=== PATIENT | female | born 1950 | race Caucasian/White ===

== ENCOUNTER 2017-09-23 03:59 | Observation (INO) ==
--- NOTE | 2017-09-23 04:43 | ED ---
HPI General Chief complaint: Extremity Problem,Nontraumatic Stated complaint: Left arm tingling x2hrs Time Seen by Provider: 09/23/17 04:00 Source: patient Mode of arrival: ambulatory Limitations: no limitations History of Present Illness HPI narrative: Patient presents with recurrent episodes of shortness of breath and weakness of upper extremities. In addition to this patient had intermittent chest discomfort and numbness of upper extremities. Patient admits to increased anxiety and stress. Related Data Home Medications Medication Instructions Recorded Confirmed atorvastatin 20 mg PO DAILY 09/23/17 09/23/17 lisinopril 10 mg PO BID 09/23/17 09/23/17 Allergies Allergy/AdvReac Type Severity Reaction Status Date / Time pentazocine Allergy Mild Nausea Verified 09/23/17 04:30 morphine Allergy Nausea Verified 09/23/17 04:31 Review of Systems ROS: all other systems reviewed are negative (Patient presents with substernal pressure radiating to neck and left shoulder that woke her up from sleep at 2: 30 AM. Pain was a tightness was not described his pain was very significant initially and at present it is still there but roughly 3 out of 10. Patient did not have shortness of breath diaphoresis or indigestion. Patient had a cardiac cath 2 years ago that showed no evidence of cardiovascular disease.) [facility]LY [facility] Medical History Medical History High cholesterol (Acute) Hypertension (Acute) Mixed connective tissue disease (Acute) Sleep apnea (Acute) Surgical History Surgical History Hx of arthroscopy of left knee (Acute) Hx of cardiac cath (Acute) Hx of tonsillectomy (Acute) Family History Family History Mother History of heart disease Brother History of heart disease History of cancer Social History Social History Substance History: No History of Abuse Second Hand Smoke Exposure: No Smoking Status: Never smoker How Often Do You Have a Drink Containing Alcohol: Monthly or less Recent Travel in [facility] within the Last 8 Weeks: No Recent Out of Country Travel within the Last 8 Weeks: No Exam Narrative Exam Narrative: GENERAL: Alert and oriented 3 SKIN: Focused skin assessment warm/dry. HEAD: Atraumatic. Normocephalic. EYES: Pupils equal and round. No scleral icterus. No injection or drainage. ENT: No nasal bleeding or discharge. Mucous membranes pink and moist. NECK: Trachea midline. No JVD. CARDIOVASCULAR: Regular rate and rhythm. No murmur appreciated. RESPIRATORY: No accessory muscle use. Clear to auscultation. Breath sounds equal bilaterally. GASTROINTESTINAL: Abdomen soft, non-tender, nondistended. Hepatic and splenic margins not palpable. MUSCULOSKELETAL: No obvious deformities. No clubbing. No cyanosis. No edema. NEUROLOGICAL: Awake and alert. No obvious cranial nerve deficits. Motor grossly within normal limits. Normal speech. PSYCHIATRIC: Appropriate mood and affect; insight and judgment normal. Course Reevaluation(s) Reevaluation #1: Patient had resolution of substernal pressure missed after receiving the aspirin before the nitroglycerin was given. The chest pain has not recurred the patient has been stable since then. I am ordering another troponin however it is my feeling is prudent for him to be admitted and potentially have a stress to make sure there is no significant cardiac disease. Time: 08:03 Initial Documented Vital Signs Temperature 97.9 F 09/23/17 04:33 Pulse Rate 65 09/23/17 04:33 Respiratory Rate 18 09/23/17 04:33 Blood Pressure 132/61 09/23/17 04:33 Pulse Oximetry 97 09/23/17 04:33 Last Documented Vital Signs Temperature 96.7 F L 09/23/17 12:00 Pulse Rate 62 09/23/17 12:00 Respiratory Rate 16 09/23/17 12:00 Blood Pressure 138/66 09/23/17 12:00 Pulse Oximetry 97 09/23/17 12:00 Critical Care Time Critical Care Time: No Medical Decision Making Differential Diagnosis Differential Diagnosis: CAD; pulmonary embolism; chest wall pain; Medical Records Medical records reviewed: Yes I reviewed the patient's medical records. Lab Data Lab results reviewed: Yes I reviewed the patient's lab results. Result diagrams: 09/23/17 04:40 09/23/17 04:40 Lab Results 09/23/17 09/23/17 09/23/17 Range/Units 04:40 04:40 04:40 CBC w Diff Auto diff final WBC 6.7 (4.0-11.0) th/mm3 RBC 4.43 (4.00-5.30) mil/mm3 Hgb 13.4 (11.6-15.3) gm/dL Hct 40.7 (35.0-46.0) % MCV 91.8 (80.0-100.0) fL MCH 30.3 (27.0-34.0) pg MCHC 33.0 (32.0-36.0) % RDW 13.2 (11.6-17.2) % Plt Count 223 (150-450) th/mm3 MPV 9.0 (7.0-11.0) fL Neut % (Auto) 62.1 (16.0-70.0) % Lymph % (Auto) 26.3 (9.0-44.0) % Sawyer % (Auto) 8.8 H (0.0-8.0) % Eos % (Auto) 2.1 (0.0-4.0) % Baso % (Auto) 0.7 (0.0-2.0) % Neut # (Auto) 4.2 (1.8-7.7) th/mm3 Lymph # (Auto) 1.8 (1.0-4.8) th/mm3 Sawyer # (Auto) 0.6 (0.0-0.9) th/mm3 Eos # (Auto) 0.1 (0.0-0.4) th/mm3 Baso # (Auto) 0.0 (0.0-0.2) th/mm3 WBC Differential . Differential Comment . PT 10.1 (9.8-11.6) sec INR 1.0 Ratio APTT 26.9 (24.3-30.1) sec D-Dimer Quant (PE/DVT) 0.53 H (0.00-0.50) mg/L FEU Sodium (136-145) meq/L Potassium (3.5-5.1) meq/L Chloride (98-107) meq/L Carbon Dioxide (21.0-32.0) meq/L Anion Gap (5-15) meq/L BUN (7-18) mg/dL Creatinine (0.50-1.00) mg/dL Estimated GFR (>89) mL/min Random Glucose (74-106) mg/dL Calcium (8.5-10.1) mg/dL Total Bilirubin (0.2-1.0) mg/dL AST (15-37) U/L ALT (10-53) U/L Alkaline Phosphatase (45-117) U/L Total Creatine Kinase (26-192) U/L Troponin I Less than 0.02 L (0.02-0.05) ng/mL Total Protein (6.4-8.2) g/dL Albumin (3.4-5.0) g/dL 09/23/17 09/23/17 09/23/17 Range/Units 04:40 08:00 09:19 CBC w Diff WBC (4.0-11.0) th/mm3 RBC (4.00-5.30) mil/mm3 Hgb (11.6-15.3) gm/dL Hct (35.0-46.0) % MCV (80.0-100.0) fL MCH (27.0-34.0) pg MCHC (32.0-36.0) % RDW (11.6-17.2) % Plt Count (150-450) th/mm3 MPV (7.0-11.0) fL Neut % (Auto) (16.0-70.0) % Lymph % (Auto) (9.0-44.0) % Sawyer % (Auto) (0.0-8.0) % Eos % (Auto) (0.0-4.0) % Baso % (Auto) (0.0-2.0) % Neut # (Auto) (1.8-7.7) th/mm3 Lymph # (Auto) (1.0-4.8) th/mm3 Sawyer # (Auto) (0.0-0.9) th/mm3 Eos # (Auto) (0.0-0.4) th/mm3 Baso # (Auto) (0.0-0.2) th/mm3 WBC Differential Differential Comment PT (9.8-11.6) sec INR Ratio APTT (24.3-30.1) sec D-Dimer Quant (PE/DVT) (0.00-0.50) mg/L FEU Sodium 143 (136-145) meq/L Potassium 3.6 (3.5-5.1) meq/L Chloride 108 H (98-107) meq/L Carbon Dioxide 27.7 (21.0-32.0) meq/L Anion Gap 7 (5-15) meq/L BUN 16 (7-18) mg/dL Creatinine 0.70 (0.50-1.00) mg/dL Estimated GFR 83 L (>89) mL/min Random Glucose 95 (74-106) mg/dL Calcium 8.3 L (8.5-10.1) mg/dL Total Bilirubin 0.5 (0.2-1.0) mg/dL AST 10 L (15-37) U/L ALT 25 (10-53) U/L Alkaline Phosphatase 55 (45-117) U/L Total Creatine Kinase 41 (26-192) U/L Troponin I Less than 0.02 L Less than 0.02 L (0.02-0.05) ng/mL Total Protein 6.9 (6.4-8.2) g/dL Albumin 3.3 L (3.4-5.0) g/dL 09/23/17 Range/Units 11:51 CBC w Diff WBC (4.0-11.0) th/mm3 RBC (4.00-5.30) mil/mm3 Hgb (11.6-15.3) gm/dL Hct (35.0-46.0) % MCV (80.0-100.0) fL MCH (27.0-34.0) pg MCHC (32.0-36.0) % RDW (11.6-17.2) % Plt Count (150-450) th/mm3 MPV (7.0-11.0) fL Neut % (Auto) (16.0-70.0) % Lymph % (Auto) (9.0-44.0) % Sawyer % (Auto) (0.0-8.0) % Eos % (Auto) (0.0-4.0) % Baso % (Auto) (0.0-2.0) % Neut # (Auto) (1.8-7.7) th/mm3 Lymph # (Auto) (1.0-4.8) th/mm3 [place]yer # (Auto) (0.0-0.9) th/mm3 Eos # (Auto) (0.0-0.4) th/mm3 Baso # (Auto) (0.0-0.2) th/mm3 WBC Differential Differential Comment PT (9.8-11.6) sec INR Ratio APTT (24.3-30.1) sec D-Dimer Quant (PE/DVT) (0.00-0.50) mg/L FEU Sodium (136-145) meq/L Potassium (3.5-5.1) meq/L Chloride (98-107) meq/L Carbon Dioxide (21.0-32.0) meq/L Anion Gap (5-15) meq/L BUN (7-18) mg/dL Creatinine (0.50-1.00) mg/dL Estimated GFR (>89) mL/min Random Glucose (74-106) mg/dL Calcium (8.5-10.1) mg/dL Total Bilirubin (0.2-1.0) mg/dL AST (15-37) U/L ALT (10-53) U/L Alkaline Phosphatase (45-117) U/L Total Creatine Kinase 38 (26-192) U/L Troponin I Less than 0.02 L (0.02-0.05) ng/mL Total Protein (6.4-8.2) g/dL Albumin (3.4-5.0) g/dL Imaging Data Radiologist's impression: Chest X-Ray 09/23/17 04:34 CONCLUSION: No acute cardiopulmonary abnormality is identified. Myocardial Perfusion Scan Nuc Med 09/23/17 11:03 CONCLUSION: 1. No evidence to suggest ischemic myocardial changes. Discharge Plan Discharge Disposition Patient Disposition: 30 Still Patient Discharge Condition Condition: Stable Discharge Order Discharge Orders: Discharge Order (Routine); Ordered 09/23/17 Ordered By: Robert Patrick Discharge Details Anticipated Discharge Date: 09/23/17 Physicians Team ED Provider: Tee Hall Primary Care Provider: Derrick Moreno Attending Provider: Margie Layton Status ED Status: Left Department Discharge Information Discharge Date/Time: 09/23/17 09:07
[2017-09-23 05:01] LABS: Baso % (Auto) 0.7 % (0.0-2.0); Eos # (Auto) 0.1 th/mm3 (0.0-0.4); Eos % (Auto) 2.1 % (0.0-4.0); Hematocrit 40.7 % (35.0-46.0); Hemoglobin 13.4 gm/dL (11.6-15.3); Lymph # (Auto) 1.8 th/mm3 (1.0-4.8); Lymph % (Auto) 26.3 % (9.0-44.0); Mean Corpuscular Hemoglobin 30.3 pg (27.0-34.0); Mean Corpuscular Volume 91.8 fL (80.0-100.0); Mono # (Auto) 0.6 th/mm3 (0.0-0.9); Mono % (Auto) 8.8 % (0.0-8.0); Neut # (Auto) 4.2 th/mm3 (1.8-7.7); Neut % (Auto) 62.1 % (16.0-70.0); Platelet Count 223 th/mm3 (150-450); Red Blood Count 4.43 mil/mm3 (4.00-5.30); Red Cell Distribution Width 13.2 % (11.6-17.2); White Blood Count 6.7 th/mm3 (4.0-11.0)
--- NOTE | 2017-09-23 05:07 | XR ---
EXAM DATE: 09/23/2017 5:02 AM EDT AGE/SEX: 66 years / Female INDICATIONS: Right side numbness, chest pain. CLINICAL DATA: This is the patient's initial encounter. Patient reports that signs and symptoms have been present for 1 day and indicates a pain score of 3/10. MEDICAL/SURGICAL HISTORY: None. None. COMPARISON: [facility], XR CHEST PA AND LAT, 03/06/2017. . FINDINGS: Portable AP view of the chest demonstrates a normal-sized cardiac silhouette. EKG lines overlie the p atient. No pleural effusion, airspace consolidation, or pneumothorax is identified. The bones and sof t tissues demonstrate no acute abnormality. CONCLUSION: No acute cardiopulmonary abnormality is identified. Electronically signed by: Daniele Fitzgerald MD 09/23/2017 5:06 AM EDT
[2017-09-23 05:10] LABS: Chloride 108 meq/L (98-107); Potassium 3.6 meq/L (3.5-5.1); Sodium 143 meq/L (136-145)
[2017-09-23 05:13] LABS: Albumin 3.3 g/dL (3.4-5.0); Anion Gap 7 meq/L (5-15); Blood Urea Nitrogen 16 mg/dL (7-18); Calcium 8.3 mg/dL (8.5-10.1); Carbon Dioxide 27.7 meq/L (21.0-32.0); Glucose,Random 95 mg/dL (74-106)
[2017-09-23 05:16] LABS: Alanine Aminotransferase 25 U/L (10-53)
[2017-09-23 05:17] LABS: Activated Partial Thrombo Time 26.9 sec (24.3-30.1); Aspartate Aminotransferase 10 U/L (15-37); Glomerular Filtration Rate 83 mL/min (>89); Prothrombin Time 10.1 sec (9.8-11.6)
[2017-09-23 05:18] LABS: Total Protein 6.9 g/dL (6.4-8.2)
[2017-09-23 05:19] LABS: Alkaline Phosphatase 55 U/L (45-117)
[2017-09-23 05:20] LABS: D-Dimer 0.53 mg/L FEU (0.00-0.50)
[2017-09-23 10:09] LABS: Creatine Kinase 41 U/L (26-192)
--- NOTE | 2017-09-23 11:09 | P.HP ---
History of Present Illness Primary Care Physician: Derrick Moreno Chief Complaint: Chest pain History of Present Illness: 66-year-old female with known history of hypertension, hypokalemia, mixed connective tissue disorder who presented to the hospital because of chest pain. Patient states that she is in normal state of health until she is woke up at 2 AM this morning with chest discomfort which she describes a tightness in her chest with numbness and tingling radiating to her left arm. She got out of bed still did not feel well after about 30 minutes so she came to the emergency department for evaluation. Patient was given aspirin in the emergency department and her pain completely resolved. She has not had any recurrent discomfort since then. Patient does have cardiac history in 2016 she was evaluated in chest pain center and underwent myocardial perfusion study which did show minimal redistribution of unknown significance with low risk. Patient followed up with Dr. Purcell, stable cleaner who performed cardiac catheterization at [facility]. She states that no intervention was needed at that time. Patient was told that she only had 10% blockage in 1 of her coronary arteries. Patient was subsequently released from the cardiology service. Patient is asymptomatic at this time. ER physician recommended patient be observed in the chest pain center. - Diagnosis (1) Chest pain Review of Systems All other systems reviewed negative except as stated in HPI Cardiovascular: Reports chest pain PMFSH - History History Provided By: Patient - Medical History Medical History: Medical History (Last Updated 09/23/17 @ 11:01 by MARITZA Marcus) High cholesterol Hypertension Mixed connective tissue disease Sleep apnea - Surgical History Surgical History: Surgical History (Last Reviewed 09/23/17 @ 11:01 by MARITZA Marcus) Hx of arthroscopy of left knee Hx of cardiac cath Hx of tonsillectomy - Family History Family History: Family History (Last Updated 09/23/17 @ 11:02 by MARITZA Marcus) Mother History of heart disease Brother History of heart disease History of cancer - Tobacco History Second Hand Smoke Exposure: No Tobacco Use In Past 30 Days: No Smoking Status: Never smoker - Alcohol History How Often Do You Have a Drink Containing Alcohol: Monthly or less - Substance Use History Substance History: No History of Abuse - Travel History Recent Travel in the [place] Within the Last 8 Weeks: No Recent Travel Out of the Country Within the Last 8 Weeks: No - Immunization History Tetanus Immunization: Unsure Hx Influenza Vaccine This Season: No Medications and Allergies Active Medications: Active Medications Sodium Chloride (Ns Flush) 2 ml IV.FLUSH BID MAKENZIE Sodium Chloride (Ns Flush) 2 ml IV.FLUSH PRN PRN PRN Reason: FLUSH AFTER USING IV ACCESS Allergies Allergy/AdvReac Type Severity Reaction Status Date / Time pentazocine Allergy Mild Nausea Verified 09/23/17 04:30 morphine Allergy Nausea Verified 09/23/17 04:31 Home Medications Medication Instructions Recorded Confirmed Type atorvastatin 20 mg PO DAILY 09/23/17 09/23/17 History lisinopril 10 mg PO BID 09/23/17 09/23/17 History Exam Vital signs: Vital Signs 09/23/17 04:33 09/23/17 04:44 09/23/17 04:46 Temperature 97.9 F Pulse Rate 65 Respiratory Rate 18 Blood Pressure 132/61 Blood Pressure [Left Arm] 155/75 H Blood Pressure [Right Arm] 132/61 Pulse Oximetry 97 97 09/23/17 05:59 09/23/17 07:02 09/23/17 08:13 Temperature Pulse Rate 60 65 Respiratory Rate 18 18 Blood Pressure 129/67 145/78 H Blood Pressure [Left Arm] Blood Pressure [Right Arm] Pulse Oximetry 97 98 98 Intake & Output 09/22/17 09/23/17 09/23/17 18:59 06:59 18:59 Weight 90.4 kg Narrative: GENERAL: Well-developed, well-nourished, in no acute distress. alert and orientated HEENT: Head is normocephalic without any lesions or masses noted. Facial features are symmetric. Eyes: Pupils equal round reactive to light. Extraocular muscles are intact. Conjunctivae were clear. Oropharyngeal: Pharynx without any erythema edema. Tongue is midline without deviation. Buccal mucosa is moist without any masses or lesions NECK: Supple without any masses. Trachea midline no deviation. No JVD, no bruits are appreciated CARDIAC: Regular rhythm, regular rate. S1/S2 are heard. No murmurs gallops or rubs. LUNGS: Clear to auscultation bilaterally. No wheeze, rhonchi or rales. No use of accessory muscles on inspiration or expiration. ABDOMEN: Soft, nontender. Nondistended. Bowel sounds heard in all 4 quadrants. No organomegaly or masses. Negative rebound, negative guarding EXTREMITIES: No edema, pulses are equal bilaterally. No cyanosis or clubbing NEUROLOGY: Mood and affect appear appropriate. Cranial nerves II through XII grossly intact. Muscle strength 5/5 in upper and lower extremities bilaterally. Deep tendon reflexes are 2+ in upper and lower extremities bilaterally. Results - Labs CBC & Chem 7: 09/23/17 04:40 09/23/17 04:40 Labs: Laboratory Results - last 24 hr 09/23/17 09/23/17 09/23/17 04:40 04:40 04:40 CBC w Diff Auto diff final WBC 6.7 RBC 4.43 Hgb 13.4 Hct 40.7 MCV 91.8 MCH 30.3 MCHC 33.0 RDW 13.2 Plt Count 223 MPV 9.0 Neut % (Auto) 62.1 Lymph % (Auto) 26.3 [place] % (Auto) 8.8 H Eos % (Auto) 2.1 Baso % (Auto) 0.7 Neut # (Auto) 4.2 Lymph # (Auto) 1.8 [place] # (Auto) 0.6 Eos # (Auto) 0.1 Baso # (Auto) 0.0 WBC Differential . Differential Comment . PT 10.1 INR 1.0 APTT 26.9 D-Dimer Quant (PE/DVT) 0.53 H Sodium Potassium Chloride Carbon Dioxide Anion Gap BUN Creatinine Estimated GFR Random Glucose Calcium Total Bilirubin AST ALT Alkaline Phosphatase Total Creatine Kinase Troponin I Less than 0.02 L Total Protein Albumin 09/23/17 09/23/17 09/23/17 04:40 08:00 09:19 CBC w Diff WBC RBC Hgb Hct MCV MCH MCHC RDW Plt Count MPV Neut % (Auto) Lymph % (Auto) [place] % (Auto) Eos % (Auto) Baso % (Auto) Neut # (Auto) Lymph # (Auto) [place] # (Auto) Eos # (Auto) Baso # (Auto) WBC Differential Differential Comment PT INR APTT D-Dimer Quant (PE/DVT) Sodium 143 Potassium 3.6 Chloride 108 H Carbon Dioxide 27.7 Anion Gap 7 BUN 16 Creatinine 0.70 Estimated GFR 83 L Random Glucose 95 Calcium 8.3 L Total Bilirubin 0.5 AST 10 L ALT 25 Alkaline Phosphatase 55 Total Creatine Kinase 41 Troponin I Less than 0.02 L Less than 0.02 L Total Protein 6.9 Albumin 3.3 L - Imaging Impressions Chest X-Ray 09/23/17 04:34 CONCLUSION: No acute cardiopulmonary abnormality is identified. Caprini VTE Risk Assessment Caprini VTE Risk Assessment: No/Low Risk (score <= 1) Caprini Risk Assessment Model: Point Value = 1 Point Value = 2 Point Value = 3 Point Value = 5 Age 41-60 Minor surgery BMI > 25 kg/m2 Swollen legs Varicose veins or History of unexplained or recurrent spontaneous Oral contraceptives or hormone replacement Sepsis (< 1 month) Serious lung disease, including pneumonia (< 1 month) Abnormal pulmonary function Acute myocardial infarction Congestive heart failure (< 1 month) History of inflammatory bowel disease Medical patient at bed rest Age 61-74 Arthroscopic surgery Major open surgery (> 45 min) Laparoscopic surgery (> 45 min) Malignancy Confined to bed (> 72 hours) Immobilizing plaster cast Central venous access Age >= 75 History of VTE Family history of VTE Factor V Leiden Prothrombin [id number] Lupus anticoagulant Anticardiolipin antibodies Elevated serum homocysteine Heparin-induced thrombocytopenia Other congenital or acquired thrombophilia Stroke (< 1 month) Elective arthroplasty Hip, pelvis, or leg fracture Acute spinal cord injury (< 1 month) Prophylaxis Regimen: Total Risk Factor Score Risk Level Prophylaxis Regimen 0-1 Low Early ambulation 2 Moderate Order ONE of the following: *Sequential Compression Device (SCD) *Heparin 5000 units SQ BID 3-4 Higher Order ONE of the following medications: *Heparin 5000 units SQ TID *Enoxaparin/Lovenox 40 mg SQ daily (WT < 150 kg, CrCl > 30 mL/min) *Enoxaparin/Lovenox 30 mg SQ daily (WT < 150 kg, CrCl > 10-29 mL/min) *Enoxaparin/Lovenox 30 mg SQ BID (WT < 150 kg, CrCl > 30 mL/min) AND/OR *Sequential Compression Device (SCD) 5 or more Highest Order ONE of the following medications: *Heparin 5000 units SQ TID (Preferred with Epidurals) *Enoxaparin/Lovenox 40 mg SQ daily (WT < 150 kg, CrCl > 30 mL/min) *Enoxaparin/Lovenox 30 mg SQ daily (WT < 150 kg, CrCl > 10-29 mL/min) *Enoxaparin/Lovenox 30 mg SQ BID (WT < 150 kg, CrCl > 30 mL/min) AND *Sequential Compression Device (SCD) Assessment and Plan - Assessment (1) Chest pain Code(s): R07.9 - Chest pain, unspecified Status: Acute - Plan Chest pain -Patient has increased risk factors include age, hypertension, hyperlipidemia -Serial cardiac enzymes were performed and are unremarkable for any acute coronary event -Serial EKGs show Q waves in V1, V2, V3. This was compared to her EKGs in 2016 without any changes. -Myocardial perfusion study was performed which did not indicate any underlying ischemia, low risk -Continue aspirin, nitroglycerin as needed Hypertension, hyperlipidemia, mixed connective tissue disorder -Continue home medications DVT prevention -Sequential compression devices Discharge Planning: Discharge home in stable condition Activity: Ad fe. Diet: Healthy heart diet Medication per medication reconciliation Follow-up with primary medical doctor in 1 week
--- NOTE | 2017-09-23 12:18 | ECG ---
Date Performed: 09/23/2017 Time Performed: 08:37:06 PTAGE: 66 years EKG: SINUS BRADYCARDIA INTRAVENTRICULAR CONDUCTION DELAY ANTEROSEPTAL MYOCARDIAL INFARCTION ABNO RMAL ECG PREVIOUS TRACING : 09/23/2017 04.06 DOCTOR: Diego Lawrence Interpretating Date/Time 09/23/2017 12:17:08
--- NOTE | 2017-09-23 12:19 | ECG ---
Date Performed: 09/23/2017 Time Performed: 04:06:37 PTAGE: 66 years EKG: Sinus rhythm WITH FIRST DEGREE AV BLOCK INTRAVENTRICULAR CONDUCTION DELAY ANTEROSEPTAL MYOCARDIAL INFARCTION ABNO RMAL ECG PREVIOUS TRACING : 11/25/2015 01.53 DOCTOR: Diego Lawrence Interpretating Date/Time 09/23/2017 12:18:29
[2017-09-23 12:34] LABS: Creatine Kinase 38 U/L (26-192)
[2017-09-23] MEDS ORDERED: Regadenoson Inj 0.4 MG/5 ML Syringe IV.PUSH ONE (12:54)
[2017-09-23 14:20] VITALS: BP 138/66; PULSE 62; RESP 16; TEMP 96.7; O2SAT 97
--- NOTE | 2017-09-23 15:59 | NM ---
EXAM DATE: 09/23/2017 1:35 PM EDT AGE/SEX: 66 years / Female INDICATIONS:Angina. . Substernal chest pain radiating to left arm. CLINICAL DATA: This is the patient's initial encounter. Patient reports that signs and symptoms have been present for 1 day and indicates a pain score of 4/10. MEDICAL/SURGICAL HISTORY: Hypertension. Tonsillectomy. Left knee. COMPARISON: [facility] [place], MYOCARDIAL PERF PHARM SPECT, 11/25/2015. . DOSE: 8.5 mCi Tc 99m Myoview at rest 25.4 mCi [id number] at stress 0.4 mg Lexiscan STRESS SYMPTOMS: Dyspnea, flushed and leg weakness. EJECTION FRACTION: 66 % TECHNIQUE: The patient underwent pharmacologic stress with infusion of prescribed dose. Continuous ECG tracing was monitored during stress. Gated SPECT imaging was performed after stress and conventi onal SPECT imaging was performed at rest. The examination was performed on a SPECT/CT scanner, both attenuation and non-corrected datasets were reviewed. FINDINGS: Distribution: The maximum perfused segment at stress is in the lateral wall. Perfusion Study: The pattern of perfusion at stress is within normal limits. Gated Study: There are intact wall motion and wall thickening without hypokinetic or dyskinetic segm ents. The ejection fraction is calculated at 66%. RISK CATEGORY: Low (<1% Annual Motality Rate) CONCLUSION: 1. No evidence to suggest ischemic myocardial changes. Electronically signed by: Saurav Lozano MD 09/23/2017 3:58 PM EDT
--- NOTE | 2017-09-24 13:18 | TR ---
Date Performed: 09/23/2017 Time Performed: 13:05:45 DOCTOR: Jose Roberto Benjamin DRUG LIST: CLINICAL HISTORY: REASON FOR TEST: Chest pain REASON FOR ENDING: OBSERVATION: CONCLUSION: Lexiscan stress test was performed under standard four minute protocol. Radionuclide was injected one minute prior to ending the test. No electrocardiographic abormalities were present to suggest ischemia. Nuclear imaging and interpretation are pending. COMMENTS:
== END 2017-09-23 16:21 | disposition home or self-care (01) ==
LOC: PHED 03:59 → PH3 03:59 → PHEDA 03:59 → PH3 08:54
PROVIDERS: ADMIT Hospitalist; ATTEND Hospitalist
DX: R94.31 Abnormal electrocardiogram [ECG] [EKG]; I10 Essential (primary) hypertension; G47.30 Sleep apnea, unspecified; Z88.5 Allergy status to narcotic agent; R07.89 Other chest pain; R53.1 Weakness; F41.9 Anxiety disorder, unspecified; R20.2 Paresthesia of skin; M35.1 Other overlap syndromes; E78.2 Mixed hyperlipidemia